=== PATIENT | female | born 1990 | race African-American/Black ===

== ENCOUNTER 2017-12-24 15:08 | Emergency (ER) | payer OTHER ==
[~2017-12-24] VITALS: Ht 157.5 cm; Wt 75.9 kg
[2017-12-24] MEDS ORDERED: MOTRIN800 MG PO (18:12)
[2017-12-24] MEDS ORDERED: PEN-VEE K,VEET500 MG PO (18:12)
[2017-12-24 18:42] VITALS: BP 137/86
== END 2017-12-24 18:48 | disposition home or self-care (01) ==
LOC: EME 15:08 → RME 15:08
PROC: 3E0T3BZ Introduction of Anesthetic Agent into Peripheral Nerves and Plexi, Percutaneous Approach (ICD-10-PCS; principal; 2017-12-24)
DX: K08.89 Other specified disorders of teeth and supporting structures (principal)
CPT/HCPCS: 99281; 99283